=== PATIENT | female | born 1985 | race Caucasian/White ===

== ENCOUNTER 2020-05-05 08:13 | Outpatient (CLI) | payer OTHER, SELFPAY ==
--- NOTE | 2020-05-05 08:16 | EST_ITS ---
Patient Info Name: Whit Harper Age: 35 years : 1985 Gender: Female Ht: 64 in Wt: 115 lbs BSA: 1.53 m2 HR: 76 bpm BP: 110 / 69 mmHg Exam Date: 05/05/2020 8:32 AM Exam Location: [facility] Patient Status: Outpatient Admit Date: 05/05/2020 Staff Ordering Physician: Ventura Saldivar DO Bath Solution Maker: Joana Thornton RDCS Attending Provider: WILLIE SAUNDERS DO Referring Physician: Janna FU; Exercise Technologist: Rufina Arredondo RDCS Exercise Physician: Willie Saunders DO Exam Type: CA stress echo Study Info Indications R07.9 - Chest pain, unspecified Treadmill exercise stress echocardiogram is performed. Summary 1. 1. Negative Cheikh exercise stress test for ischemic ST changes by ECG criteria. 2. 2. Good functional capacity, achieving 13 METs of workload. 3. 3. Appropriate HR response to exercise. 4. 4. Appropriate HR recovery at 1 minute post exercise. 5. 5. Negative stress echocardiogram for ischemia by wall motion analysis. 6. 6. Patient informed of the above results. Stress Echo Findings Left Ventricle Appropriate increase in LV endocardial thickening with systole. Appropriate augmentation of contractility with systole. No wall motion abnormality. Left Ventricle Preserved LV systolic function, no wall motion abnormality. Protocol: Cheikh Stress ECG Details Stage: REST Duration (min): 7 min : 7 sec Speed (mph): 0.0 Grade (%): 0 HR (bpm): 76 SBP (mmHg): 110 DBP (mmHg): 69 METS: --- Stage: REST Duration (min): 17 min : 56 sec Speed (mph): 0.0 Grade (%): 0 HR (bpm): 91 SBP (mmHg): 110 DBP (mmHg): 69 METS: --- Stage: STAGE 1 Duration (min): 1 min : 0 sec Speed (mph): 1.7 Grade (%): 10 HR (bpm): 109 SBP (mmHg): 110 DBP (mmHg): 69 METS: --- Stage: STAGE 1 Duration (min): 2 min : 0 sec Speed (mph): 1.7 Grade (%): 10 HR (bpm): 112 SBP (mmHg): 110 DBP (mmHg): 69 METS: --- Stage: STAGE 1 Duration (min): 3 min : 0 sec Speed (mph): 1.7 Grade (%): 10 HR (bpm): 113 SBP (mmHg): 140 DBP (mmHg): 61 METS: --- Stage: STAGE 2 Duration (min): 1 min : 0 sec Speed (mph): 2.5 Grade (%): 12 HR (bpm): 123 SBP (mmHg): 140 DBP (mmHg): 61 METS: --- Stage: STAGE 2 Duration (min): 2 min : 0 sec Speed (mph): 2.5 Grade (%): 12 HR (bpm): 122 SBP (mmHg): 135 DBP (mmHg): 62 METS: --- Stage: STAGE 2 Duration (min): 3 min : 0 sec Speed (mph): 2.5 Grade (%): 12 HR (bpm): 122 SBP (mmHg): 135 DBP (mmHg): 62 METS: --- Stage: STAGE 3 Duration (min): 1 min : 0 sec Speed (mph): 3.4 Grade (%): 14 HR (bpm): 130 SBP (mmHg): 118 DBP (mmHg): 63 METS: --- Stage: STAGE 3 Duration (min): 2 min : 0 sec Speed (mph): 3.4 Grade (%): 14 HR (bpm): 130 SBP (mmHg): 118 DBP (mmHg): 63 METS: --- Stage: STAGE 3 Duration (min): 3 min : 0 sec
== END 2020-05-05 08:14 | disposition home or self-care (01) ==
LOC: ANHCARD 08:15
PROVIDERS: PCP Internal Medicine; Visit Provider Internal Medicine
DX: R07.89 Other chest pain (principal)
CPT/HCPCS: 93351

== ENCOUNTER 2020-05-25 10:36 | Outpatient (CLI) | payer OTHER, SELFPAY ==
--- NOTE | 2020-06-02 12:11 | WPDHOLTEREM ---
Holter/Event Monitor Holter/Event Monitor Date of procedure: 05/25/20 Procedure Type: 48 hour holter monitor Indications: Palpitations Conclusion: 1. 48 hour holter monitor on 05/25/20. 2. Underlying rhythm is sinus rhythm. HR range 57-169 bpm; average HR 100 bpm. 3. No premature supraventricular complex. No supraventricular tachycardia. 4. There is one premature ventricular complex. No ventricular tachycardia. 5. No sinoatrial or atrioventricular blocks. No significant pauses greater than 2 seconds. 6. No symptoms available for correlation.
== END 2020-05-25 10:37 | disposition home or self-care (01) ==
LOC: ANHCARD 10:39
PROVIDERS: PCP Internal Medicine; Visit Provider Nurse Practitioner
DX: R00.2 Palpitations (principal)
CPT/HCPCS: 93225; 93226

== ENCOUNTER 2020-08-03 16:01 | Outpatient (NON) | payer OTHER, SELFPAY ==
[2020-08-04 14:27] LABS: Influenza Control Positive
== END 2020-08-03 16:02 ==
LOC: ANHCOVIDDT 16:02
PROVIDERS: PCP Internal Medicine; Visit Provider Internal Medicine
DX: R68.89 Other general symptoms and signs (principal)
CPT/HCPCS: 87804

== ENCOUNTER 2020-08-04 07:13 | Outpatient (NON) | payer OTHER, SELFPAY ==
[2020-08-05 01:32] LABS: SARS-CoV-2 RNA PCR Negative
== END 2020-08-04 07:14 ==
LOC: ANHCOVIDDT 07:13
PROVIDERS: PCP Internal Medicine; Visit Provider Internal Medicine
DX: R68.89 Other general symptoms and signs (principal); Z20.828 Contact with and (suspected) exposure to other viral communicable diseases
CPT/HCPCS: 87635; C9803; U0003

== ENCOUNTER 2021-03-02 20:38 | Emergency (ER) | payer SELFPAY ==
--- NOTE | ~2021-03-02 | XR_ITS ---
XR ankle RT min 3V DATE: 03/02/2021 20:59 INDICATION: Fall down 8 steps. Generalized right ankle and foot pain TECHNIQUE: 4 views COMPARISON: None FINDINGS: No fracture or dislocation of the ankle or disruption of the ankle mortise. No periosteal r eaction or bone destruction. IMPRESSION: Negative Reviewed, dictated and finalized at location A. IMPRESSION: Negative
--- NOTE | ~2021-03-02 | XR_ITS ---
XR lumbar spine 2-3V DATE: 03/02/2021 21:32 INDICATION: Fall down 8 stairs. Back pain radiating down right leg. TECHNIQUE: AP, lateral, coned lateral lumbosacral views COMPARISON: None FINDINGS: Status post cholecystectomy. Normal alignment of the lumbar spine. No fracture or spondylolisthesis. The lumbar pedicles are int act. Minimal degenerative spurring at L2-3 and L3-4. Lumbar and lumbosacral interspaces are well pr eserved. The sacroiliac joints are normal. IMPRESSION: Minimal degenerative change; no fracture Reviewed, dictated and finalized at location A.
--- NOTE | ~2021-03-02 | XR_ITS ---
XR foot RT min 3V DATE: 03/02/2021 20:59 INDICATION: Fall down 8 steps. Generalized foot pain TECHNIQUE: 4 views COMPARISON: None FINDINGS: Osteotomy externum, normal variant. No fracture, dislocation, periosteal reaction or bone destruction IMPRESSION: No significant abnormality is detected in Reviewed, dictated and finalized at location A.
[2021-03-02 20:42] VITALS: BP 108/85; PULSE 93; RESP 18; TEMP 36.8; O2SAT 97
--- NOTE | 2021-03-02 20:50 | PC.NURSE ---
Xray of foot completed at bedside. Pt presents to ED with complaints of right foot pain after falling down carpeted stairs at home. 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 Pain sharp, aching and rated 8/10 at this time. Moderate swelling noted to top of foot. Pt able to manipulate digits with some pain; ice pack provided for pain. Mom is present at bedside. Call button and personal items within reach. Pt advised to press call button for assistance.
--- NOTE | 2021-03-02 21:18 | ED.GENADULT ---
HPI - General Adult General Chief complaint: Extremity Injury, Lower Stated complaint: Fell downstairs, R ankle pain Time Seen by Provider: 03/02/21 20:42 Source: RN notes reviewed History of Present Illness HPI narrative: Patient presents to emergency department from home for a fall. Patient states she is walking on stairs when she tripped landing on her buttocks and back and sliding down the stairs she states that since that time she is had pain in the right ankle and foot as well as mild pain in the left lower back patient notes some mild abrasions of the left lower back she denies striking her head or loss of consciousness she denies any other pain or injury states she took no medication for the pain Related Data Allergies Allergy/AdvReac Type Severity Reaction Status Date / Time No Known Allergies Allergy Verified 10/19/20 14:08 Review of Systems Review of Systems: Narrative: Gen.: Denies fevers or chills Eyes: Denies eye pain or visual change ENT: Denies congestion Respiratory: Denies shortness of breath or cough CV: Denies chest pain or palpitations GI: Denies abdominal pain nausea, emesis or diarrhea denies burning, urgency, frequency or hematuria Musculoskeletal: See HPI Neuro: Denies numbness, tingling, weakness or focal weakness Skin: Denies rash Except as documented, all other systems reviewed and negative [facility] Past Medical History Medical History (Updated 03/02/21 @ 22:18 by Yony Arias DO) Anxiety Fatigue Family History Family History Mother Hypertension Family history of elevated blood lipids Family history of malignant neoplasm of breast in first degree relative Family history of hypothyroidism Family history of malignant neoplasm of cervix Grandparent Cerebrovascular accident, Onset Age: 54 Father Depression Other Carcinoma of colon Family history of cardiovascular disease Family history of emphysema Family history of malignant neoplasm Social History Social History Smoking status: Current every day smoker Second hand tobacco smoke exposure: No Alcohol intake: current Exam Narrative: Exam Narrative: APPEARANCE: No acute distress, nontoxic, resting in bed EYES: EOMI HEENT: Normocephalic, atraumatic, OMM RESPIRATORY: No respiratory distress Clear to auscultation bilaterally with no rhonchi wheezing or rales. CARDIOVASCULAR: Regular rate and rhythm without murmurs rubs or gallops. ABDOMINAL: Soft, nontender, nondistended, no rebound or guarding Back: No midline thoracic or lumbar tenderness palpation no step-off tender palpation right paravertebral muscles L2-4 with mild overlying abrasion MUSCULOSKELETAl: Moves all extremities. No clubbing, cyanosis or edema. Tender palpation of the right medial and lateral ankle ~right dorsal foot mild swelling with no ecchymosis seen no tenderness at the base of the fifth metatarsal no tenderness of the proximal fibula no tenderness of the right knee or hip dorsalis pedis pulse 2+ neurovascular intact no tenderness bilateral upper extremities left lower extremity NEURO: Awake and alert. Following commands, speech normal, no focal deficits SKIN:: Warm, dry. No rashes lesions or abrasions PSYCHIATRIC: Normal affect/mood, Course Course Emergency Course: Discussed with patient results of workup and diagnosis. Discussed need for follow-up with primary care, proper use of medication, and reasons to return to the emergency department. Patient understands and agrees to current treatment plan Vital Signs Vital signs: Vital Signs Temperature 98.2 F 03/02/21 20:42 Pulse Rate 93 03/02/21 20:42 Respiratory Rate 18 03/02/21 20:42 Blood Pressure 108/85 03/02/21 20:42 Pulse Oximetry 97 03/02/21 20:42 Temperature 98.2 F 03/02/21 20:42 Pulse Rate 85 03/02/21 21:19 Respiratory Rate 20 03/02/21 21:
[2021-03-02 21:19] VITALS: BP 98/59; PULSE 85; RESP 20; O2SAT 97
--- NOTE | 2021-03-02 21:19 | PC.NURSE ---
EDMD presented to bedside.
--- NOTE | 2021-03-02 21:23 | PC.NURSE ---
pt to radiology via cart.
--- NOTE | 2021-03-02 21:28 | PC.NURSE ---
Pt returned from radiology.
[2021-03-02] MEDS: HYDROcodone/acetaminophen (*CRX) 5-325 MG TABLET 1 TAB PO (21:30)
[2021-03-02 21:55] LABS: Add Urine Microscopic? NO; Appearance Urine Clear (Clear); Bilirubin Urine Negative (Negative); Blood Urine Negative (Negative); Color Urine Straw (Yellow); Glucose Urine UA Negative (Negative); Ketones Urine Negative (Negative); Leukocyte Esterase Ur Negative LEU/UL (Negative); Nitrate Urine Negative (Negative); Protein Urine Negative (Negative); Specific Grav Ur 1.013 (1.001-1.035); Urobilinogen Urine Negative mg/dL (<2.0)
--- NOTE | 2021-03-02 21:55 | PC.NURSE ---
Pt assisted to and from restroom via wheel chair with mom. Pt is now back in room resting on cart in its lowest position with call button and personal items within reach. Pt advised to press call button for assistance.
[2021-03-02 22:21] VITALS: BP 103/69; PULSE 76; RESP 18; TEMP 37.6; O2SAT 99
[2021-03-02 22:35] VITALS: TEMP 37.6
--- NOTE | 2021-03-02 22:35 | PC.NURSE ---
Hilario wrap applied and crutch teaching completed. Pt tolerated well and was able to properly ambulate with crutches.
[2021-03-02 22:54] VITALS: TEMP 37.6
== END 2021-03-02 22:56 | disposition home or self-care (01) ==
PROVIDERS: Emergency Provider Emergency Medicine; PCP Internal Medicine
DX: S93.401A Sprain of unspecified ligament of right ankle, initial encounter (principal); S30.0XXA Contusion of lower back and pelvis, initial encounter; F17.200 Nicotine dependence, unspecified, uncomplicated; W10.9XXA Fall (on) (from) unspecified stairs and steps, initial encounter
CPT/HCPCS: 72100; 73610; 73630; 81003; 81025; 99284; A9270

== ENCOUNTER 2021-05-12 10:23 | Emergency (ER) | payer BC, SELFPAY ==
[2021-05-12 10:32] VITALS: BP 85/55; PULSE 67; RESP 16; TEMP 36.2; O2SAT 99
--- NOTE | 2021-05-12 11:02 | ED.URI ---
HPI - URI/Sore Throat General Chief Complaint: Upper Respiratory Infection Stated Complaint: sinus issues Time Seen by Provider: 05/12/21 11:02 Source: patient Mode of arrival: ambulatory Limitations: no limitations History of Present Illness HPI Narrative: Whit Harper is a 36 yo female with no PMH who comes with ongoing sinus issues, cough with green mucus, ear pain bilaterally no fever x2 weeks. She has been tested twice for Covid and both times are negative. However her job will make her leave because of her cough and mild hoarseness Patient has tried Mucinex, Tessalon Perles, [id number] Tuss-DM, [id number] cold pills without improvement Related Data Home Medications Medication Instructions Recorded Confirmed buspirone mg 05/12/21 Allergies Allergy/AdvReac Type Severity Reaction Status Date / Time No Known Allergies Allergy Verified 10/19/20 14:08 Review of Systems Review of Systems: CONSTITUTIONAL: Denies fever, chills, sweats. EYES: Denies visual changes, redness, discharge. ENT: Has rhinorrhea, has congestion, sore throat, bilateral otalgia. CARDIOVASCULAR: Denies chest pain, palpitations, edema. RESPIRATORY: Denies dyspnea, wheezing, productive cough GASTROINTESTINAL: Denies abdominal pain, nausea, vomiting, diarrhea. GENITOURINARY: Denies dysuria, hematuria, abnormal discharge SKIN: Denies rash or itching. NEUROLOGIC: Denies numbness, or focal weakness. PSYCHIATRIC: Denies anxiety or depression. [facility] Past Medical History Medical History Anxiety Fatigue Family History Family History Mother Hypertension Family history of elevated blood lipids Family history of malignant neoplasm of breast in first degree relative Family history of hypothyroidism Family history of malignant neoplasm of cervix Grandparent Cerebrovascular accident, Onset Age: 54 Father Depression Other Carcinoma of colon Family history of cardiovascular disease Family history of emphysema Family history of malignant neoplasm Social History Social History Smoking status: Current every day smoker Second hand tobacco smoke exposure: No Alcohol intake: current Comments At time of signature, I agree with nursing past medical, surgical, social and family history. There is no relevant family history pertinent to the presenting complaint. Exam Narrative: GENERAL: This is a well-nourished, well-developed patient, in mild distress. Feels fatigued HEAD: normocephalic, atraumatic. EYES: Sclera clear/white. Vision is grossly intact. EARS: External ears normal, auditory canals mild erythema and without drainage, TMs bulging; hearing grossly intact. NOSE: External nose normal with nasal discharge, nares with redness, has rhinorrhea. THROAT: Mucous membranes moist, posterior pharynx pink NECK: Neck supple, non-tender CARDIOVASCULAR: Regular rate and rhythm without murmurs, gallops, or rubs. RESPIRATORY: Clear to auscultation. Breath sounds equal bilaterally. No wheezes, rales, or rhonchi. GASTROINTESTINAL: Abdomen soft, SKIN: warm, intact with no suspicious lesions or rash, good texture and turgor. NEURO: awake, alert, and oriented to person, place and time. There were no obvious focal neurologic abnormalities. Steady gait EXTREMITIES: Normal range of motion. BACK: Nontender without deformity Course Course Emergency Course: Patient comes with sinus issues including bilateral ear pain and rhinorrhea sinus pressure cough with green mucus x2 weeks has had to quit negative Covid test Started on Zithromax, codeine cough syrup, steroids, Zyrtec, patient will continue use Mucinex and will start Flonase nasal spray and continue Zyrtec once steroids are completed Vital Signs Vital signs: Vital Signs Temperature 97.1 F L
== END 2021-05-12 11:24 | disposition home or self-care (01) ==
PROVIDERS: Emergency Provider Nurse Practitioner; PCP Family Medicine
DX: J01.10 Acute frontal sinusitis, unspecified (principal); F17.200 Nicotine dependence, unspecified, uncomplicated
CPT/HCPCS: 99213; G0463

== ENCOUNTER 2021-06-05 09:36 | Emergency (ER) | payer BC, SELFPAY ==
[2021-06-05 09:44] VITALS: BP 113/70; PULSE 90; RESP 20; TEMP 36.4; O2SAT 100
--- NOTE | 2021-06-05 10:05 | ED.URI ---
HPI - URI/Sore Throat General Chief Complaint: Nausea/Vomiting/Diarrhea Stated Complaint: vomiting/diarrhea/cough Time Seen by Provider: 06/05/21 10:48 Source: patient and RN notes reviewed Mode of arrival: ambulatory Limitations: no limitations History of Present Illness HPI Narrative: 36-year-old female presents with concern for ongoing sinus congestion, pressure, pain, drainage. Reports she was seen on May 12 for similar symptoms and was given antibiotic and steroid. Reports symptoms mildly improved, however did not resolve. She reports since then she over the last 2 days has developed shakiness, body aches, headache, nausea, vomiting, occasional diarrhea. She reports a history of bleeding gastric ulcers, reports all of her vomitus looked slightly black. She denies abdominal pain. Denies bloody, black, tarry stools. MD elicited complaint: other ([place]) Related Data Allergies Allergy/AdvReac Type Severity Reaction Status Date / Time No Known Allergies Allergy Verified 06/05/21 10:08 Review of Systems Review of Systems: CONSTITUTIONAL: Reports malaise, chills, sweats, shakiness. Denies fever. EYES: Denies visual changes, redness, or discharge. ENT: Reports rhinorrhea, congestion, sinus pain, otalgia. Denies sore throat. CARDIOVASCULAR: Denies chest pain, palpitations, or edema. RESPIRATORY: Denies cough or dyspnea. GASTROINTESTINAL: Denies abdominal pain, bloody, or mucous stools. Reports nausea, vomiting, diarrhea, GENITOURINARY: Denies dysuria or hematuria. SKIN: Denies rash or itching. MUSCULOSKELETAL: Reports myalgia. NEUROLOGIC: Reports headache. All systems reviewed & are unremarkable except as noted in HPI and below PMFSH Past Medical History Medical History Anxiety Fatigue Family History Family History Mother Hypertension Family history of elevated blood lipids Family history of malignant neoplasm of breast in first degree relative Family history of hypothyroidism Family history of malignant neoplasm of cervix Grandparent Cerebrovascular accident, Onset Age: 54 Father Depression Other Carcinoma of colon Family history of cardiovascular disease Family history of emphysema Family history of malignant neoplasm Social History Social History Smoking status: Current every day smoker Second hand tobacco smoke exposure: No Alcohol intake: current Comments At time of signature, agree with nursing past medical, surgical, social and family history. There is no relevant family history pertinent to the presenting complaint Exam Narrative: GENERAL: Well-appearing, well-nourished, and in no acute distress. HEAD: Normocephalic, atraumatic. EYES: PERRLA, conjunctivae clear ENT: Nares clear, turbinates edematous and erythematous, sinus tenderness. Mucous membranes moist. TM pearly bah with dull light reflex bilaterally; no tragal tenderness. Oropharynx not erythematous without lesions. Tonsils not enlarged and without exudate, no drooling, no hoarseness, no trismus, uvula midline. NECK: Supple. No lymphadenopathy. CHEST: No respiratory distress. Clear to auscultation. No bony deformities, no asymmetry. Speaks in full sentences. HEART: Regular rate and rhythm. No murmur heard ABDOMEN: Soft,nondistended, normal active bowel sounds, no palpable masses. Actually mild epigastric tenderness SKIN: Warm, dry, no visible rash. NEURO: Alert and oriented x3. PSYCH: Normal mood and affect Course Course Emergency Course: Discussed limited diagnostic capability at the [facility] regarding patient's symptoms, particularly black color in her vomitus. Discussed transfer to emergency department versus following up with primary care doctor. Patient reports she has a history of bleeding gastric ulcers, reports she has a gastroenterolo
[2021-06-06 20:25] LABS: SARS-CoV-2 RNA PCR Negative
== END 2021-06-05 11:20 | disposition home or self-care (01) ==
PROVIDERS: Emergency Provider Nurse Practitioner
DX: J01.90 Acute sinusitis, unspecified (principal); R11.2 Nausea with vomiting, unspecified; F17.200 Nicotine dependence, unspecified, uncomplicated
CPT/HCPCS: 87081; 87426; 87880; 99213; C9803; G0463; U0003; U0005

== ENCOUNTER → 2021-10-15 00:51 | Outpatient (CLI) | payer BC, SELFPAY ==
[2021-10-15 14:45] LABS: Influenza A QL RT-PCR Negative (Negative); Influenza B QL RT-PCR Negative (Negative); SARS-CoV-2 RNA PCR Negative
== END ==
PROVIDERS: PCP Internal Medicine; Visit Provider Internal Medicine
DX: R68.89 Other general symptoms and signs (principal); Z20.822 Contact with and (suspected) exposure to COVID-19
CPT/HCPCS: 87502; C9803; U0003; U0005

== ENCOUNTER 2021-12-04 17:53 | Emergency (ER) | payer BC, SELFPAY ==
--- NOTE | ~2021-12-04 | XR_ITS ---
EXAMINATION: XR chest 2V DATE: 12/04/2021 18:57 INDICATION: 2 weeks of productive cough TECHNIQUE: PA and lateral views of the chest were obtained. COMPARISON: Chest radiograph dated 06/15/2019 FINDINGS: The lungs remain clear with no focal airspace opacities, pulmonary edema, pleural effusion or pneumot horax. The cardiomediastinal silhouette is normal. Mild thoracolumbar dextrocurvature with mild spond ylosis. Cholecystectomy clips in right upper quadrant. IMPRESSION: 1. No acute cardiopulmonary disease. Reviewed, dictated and finalized at location A. [employer]
[2021-12-04 18:03] VITALS: BP 138/84; PULSE 108; RESP 16; TEMP 37.2; O2SAT 99
--- NOTE | 2021-12-04 18:30 | ED.URI ---
HPI - URI/Sore Throat General Chief Complaint: Upper Respiratory Infection Stated Complaint: vomiting/uri/cp Time Seen by Provider: 12/04/21 18:31 Source: patient Mode of arrival: ambulatory Limitations: no limitations History of Present Illness HPI Narrative: 36 yo F presents with c/o sore throat and N/V today. Also reports has had dry, hacking cough for 2 wks. cough is constant. Denies SOB. Not taking OTC cough suppressant to treat symptoms. afebrile. All systems reviewed and negative except as noted above. Related Data Home Medications Medication Instructions Recorded Confirmed cetirizine 10 mg tablet 10 mg PO DAILY 06/11/21 09/04/21 dexlansoprazole 60 mg 60 mg PO DAILY 06/11/21 09/04/21 capsule,biphase delayed release diphenoxylate-atropine 2.5 1 tablet PO QID PRN 06/11/21 09/04/21 mg-0.025 mg tablet multivitamin 1 tablet PO DAILY 06/11/21 09/04/21 prazosin 1 mg capsule 1 mg PO QHS 06/11/21 09/04/21 sucralfate 1 gram tablet 1 g PO BID tablet 06/11/21 09/04/21 quetiapine 50 mg tablet 50 mg PO TID tablet 09/04/21 09/04/21 fluoxetine [Prozac] 20 mg PO BID 12/04/21 12/04/21 Allergies Allergy/AdvReac Type Severity Reaction Status Date / Time No Known Allergies Allergy Verified 09/04/21 08:48 Review of Systems Review of Systems: CONSTITUTIONAL: Denies fever, chills, or sweats. EYES: Denies visual changes, redness, or discharge. ENT: Denies rhinorrhea, congestion. Reports sore throat. Denies otalgia. CARDIOVASCULAR: Denies chest pain, palpitations, or edema. RESPIRATORY: Reports cough. Denies dyspnea. GASTROINTESTINAL: Denies abdominal pain, nausea, vomiting, or diarrhea. GENITOURINARY: Denies dysuria or hematuria. SKIN: Denies rash or itching. MUSCULOSKELETAL: Denies back pain, joint pain, or myalgia. NEUROLOGIC: Denies headache, numbness, or weakness. PSYCHIATRIC: Denies anxiety or depression. All other systems reviewed are negative, except as documented in HPI. [facility] Past Medical History Medical History Anxiety Fatigue Family History Family History Mother Hypertension Family history of elevated blood lipids Family history of malignant neoplasm of breast in first degree relative Family history of hypothyroidism Family history of malignant neoplasm of cervix Grandparent Cerebrovascular accident, Onset Age: 54 Father Depression Other Carcinoma of colon Family history of cardiovascular disease Family history of emphysema Family history of malignant neoplasm Social History Social History Smoking packs per day: 5 Smoking cigarettes per day: 100.0 Years smoked: 28 Smoking pack-years: 140.00 Smoking status: Current every day smoker Second hand tobacco smoke exposure: No Alcohol intake: current Comments At time of signature, agree with nursing past medical, surgical, social and family history. There is no relevant family history pertinent to the presenting complaint. Exam Narrative: GENERAL: This is a well-nourished, well-developed patient, in no apparent distress. HEAD: normocephalic, atraumatic. EYES: PERRL. Sclera clear/white. Vision is grossly intact. EARS: External ears normal, auditory canals clear and without drainage, TMs normal without perforation. Hearing grossly intact. NOSE: External nose normal with no obvious nasal discharge, nares without redness, no rhinorrhea. THROAT: Mucous membranes moist, posterior pharynx erythematous with no swelling. NECK: Neck supple, non-tender without lymphadenopathy, masses or thyromegaly. CARDIOVASCULAR: Regular rate and rhythm without murmurs, gallops, or rubs. RESPIRATORY: Clear to auscultation. Breath sounds equal bilaterally. No wheezes, rales, or rhonchi. GASTROINTESTINAL: Abdomen soft, non-tender, nondistended. Bowel sounds are active. No hepato-sple
== END 2021-12-04 19:30 | disposition home or self-care (01) ==
PROVIDERS: Emergency Provider Nurse Practitioner Family; PCP Internal Medicine
DX: R11.2 Nausea with vomiting, unspecified (principal); J20.9 Acute bronchitis, unspecified; F17.210 Nicotine dependence, cigarettes, uncomplicated; F41.9 Anxiety disorder, unspecified
CPT/HCPCS: 71046; 87081; 87880; 99213; G0463

== ENCOUNTER 2021-12-31 08:09 | Emergency (ER) | payer BC, SELFPAY ==
[2021-12-31] VITALS (35 sets, daily range): BP systolic 107–132; BP diastolic 72–97; PULSE 85–107; RESP 15–18; O2SAT 91–100
[2021-12-31 08:38] LABS: Basophils Absolute Auto 0.1 K/mm3 (0.0-0.1); Basophils Percent Auto 0.8 % (0.2-1.2); Eosinophils Absolute Auto 0.6 K/mm3 (0-0.3); Eosinophils Percent Auto 5.5 % (0-4.4); Hematocrit 40.5 % (37.0-47.0); Hemoglobin 13.6 g/dL (12.0-15.0); Immature Granulocyte Absolute 0.03 K/mm3 (0.00-0.031); Immature Granulocyte Percent A 0.3 % (0-0.5); Lymphocytes Absolute Auto 3.31 K/mm3 (0.9-3.2); Lymphocytes Percent Auto 31.9 % (18.3-44.2); Mean Corpuscular HGB Conc 33.6 g/dl (32-36); Mean Corpuscular Hemoglobin 33.5 pg (26-34); Mean Corpuscular Volume 99.8 fl (80-100); Mean Platelet Volume 8.5 fl (7.4-10.4); Monocytes Absolute Auto 0.5 K/mm3 (0.1-0.6); Monocytes Percent Auto 4.7 % (2.6-8.5); Neutrophils Absolute Auto 5.9 K/mm3 (1.3-6.7); Neutrophils Percent Auto 56.8 % (45.5-73.1); Platelet Count Result 271 k/mm3 (150-375); Red Blood Count 4.06 M/mm3 (4.2-5.4); Red Cell Distribution Width 14.9 % (11.5-14.5); White Blood Count 10.4 K/mm3 (4.5-10.0)
[2021-12-31 08:49] LABS: Alanine Aminotransferase 63 U/L (4-35); Albumin Level 4.4 g/dL (3.5-5.1); Alkaline Phosphatase 70 U/L (38-126); Anion Gap 8 mmol/L (8-16); Aspartate Amino Transferase 90 U/L (14-36); Bilirubin,Total 0.2 mg/dL (0.2-1.3); Blood Urea Nitrogen 10 mg/dL (7-17); Calcium 8.3 mg/dL (8.4-10.2); Carbon Dioxide 26 mmol/L (22-30); Chloride 104 mmol/L (98-107); Estimated CRCL calculation 93 ml/min; Estimated Glomerular Filt Rate > 60; Glucose 101 mg/dL (65-110); Potassium 3.9 mmol/L (3.4-5.0); Sodium 138 mmol/L (137-145)
--- NOTE | 2021-12-31 08:56 | ED.PSYCH ---
HPI - Psych General Chief Complaint: Alcohol <Chris Chapa DO - Last Filed: 12/31/21 18:12> Stated Complaint: depression <Chris Chapa DO - Last Filed: 12/31/21 18:12> Time Seen by Provider: 12/31/21 08:25 <Chris Chapa DO - Last Filed: 12/31/21 18:12> Source: patient <Chris Chapa DO - Last Filed: 12/31/21 18:12> Mode of arrival: ambulatory <Chris Chapa DO - Last Filed: 12/31/21 18:12> Limitations: no limitations <Chris Chapa DO - Last Filed: 12/31/21 18:12> History of Present Illness HPI Narrative: 36-year-old female presents from the internal medicine clinic in [place] after seen by nurse practitioner Darlene. She sent her over here to be evaluated and make arrangements for her to have an inpatient stay at [facility]. Patient's been having problem depression and alcohol abuse. Is gotten much worse lately. She is drinking on a daily basis. She has been to 3 different hospitals in the last week. At this time she needs an inpatient stay in a psychiatric facility to help her get her symptoms under control. She had a longstanding history of depression. She states she has not been taking her depressive medication as she is supposed to. She denies any suicidal plan at this time. She is working and works in logistics. <Chris Chapa DO - Last Filed: 12/31/21 18:12> Related Data Home Medications: Home Medications Medication Instructions Recorded Confirmed cetirizine 10 mg tablet 10 mg PO DAILY 06/11/21 12/31/21 dexlansoprazole 60 mg 60 mg PO DAILY 06/11/21 12/31/21 capsule,biphase delayed release diphenoxylate-atropine 2.5 1 tablet PO QID PRN 06/11/21 12/31/21 mg-0.025 mg tablet multivitamin 1 tablet PO DAILY 06/11/21 12/31/21 sucralfate 1 gram tablet 1 g PO BID tablet 06/11/21 12/31/21 fluoxetine [Prozac] 20 mg PO BID 12/04/21 12/31/21 <Chris Chapa DO - Last Filed: 12/31/21 18:12> Allergies/Adverse Reactions: Allergies Allergy/AdvReac Type Severity Reaction Status Date / Time No Known Allergies Allergy Verified 12/31/21 07:24 <Chris Chapa, DO - Last Filed: 12/31/21 18:12> Review of Systems Review of Systems: CONSTITUTIONAL: Denies fever, chills, or sweats. EYES: Denies visual changes, redness, or discharge. ENT: Denies rhinorrhea, congestion, sore throat, or otalgia. CARDIOVASCULAR: Denies chest pain, palpitations, or edema. RESPIRATORY: Denies cough or dyspnea. GASTROINTESTINAL: Denies abdominal pain, nausea, vomiting, or diarrhea. GENITOURINARY: Denies dysuria or hematuria. SKIN: Denies rash or itching. MUSCULOSKELETAL: Denies back pain, joint pain, or myalgia. NEUROLOGIC: Denies headache, numbness, or weakness. PSYCHIATRIC: Admits to depression as well as alcohol abuse. <Chris Chapa, DO - Last Filed: 12/31/21 18:12> [facility] Past Medical History Medical History: Medical History Anxiety Fatigue <Chris Chapa, DO - Last Filed: 12/31/21 18:12> Family History Family History: Family History Mother Hypertension Family history of elevated blood lipids Family history of malignant neoplasm of breast in first degree relative Family history of hypothyroidism Family history of malignant neoplasm of cervix Grandparent Cerebrovascular accident, Onset Age: 54 Father Depression Other Carcinoma of colon Family history of cardiovascular disease Family history of emphysema Family history of malignant neoplasm <Chris Chapa DO - Last Filed: 12/31/21 18:12> Social History Social History: Social History Smoking packs per day: 5 Smoking cigarettes per day: 100.0 Years smoked: 28 Smoking pack-years: 140.00 Smoking status: Current every day smoker Second hand tobacco smoke exposure: No
[2021-12-31] MEDS: LORazepam INJ (*CRX) 2 MG/ML VIAL 0.5 MG IV PUSH (09:03)
[2021-12-31 09:10] LABS: Ethanol 432 mg/dL (<10)
[2021-12-31 09:22] LABS: Add Urine Microscopic? YES; Appearance Urine Cloudy (Clear); Bilirubin Urine Negative (Negative); Blood Urine Negative (Negative); Color Urine Yellow (Yellow); Glucose Urine UA Negative (Negative); Ketones Urine Negative (Negative); Leukocyte Esterase Ur Negative LEU/UL (Negative); Mucus Urine Rare /lpf; Nitrate Urine Negative (Negative); Protein Urine Negative (Negative); RBC Urine 0-2 /hpf (0-2); Specific Grav Ur 1.015 (1.001-1.035); Squamous Epithelial Cell Urine Many /hpf (Few); Urobilinogen Urine Negative mg/dL (<2.0); WBC Urine 0-3 /hpf
[2021-12-31 09:56] LABS: Amphetamine Screen Urine Negative (Negative); Barbiturate Screen Urine Negative (Negative); Benzodiazepines Screen Urine Positive (Negative); Cannabinoid Screen Urine Positive (Negative); Cocaine Screen Urine Negative (Negative); Methadone Screen Urine Negative (Negative); Opiate Screen Urine Negative (Negative); Phencyclidine Screen Urine Negative (Negative)
[2021-12-31] MEDS: SODIUM CHLORIDE 0.9% IV 1,000 ML 999 ML IV CONT (15:04)
[2021-12-31] MEDS: LORazepam INJ (*CRX) 2 MG/ML VIAL 1 MG IV PUSH (17:02)
[2021-12-31 18:57] LABS: Ethanol 110 mg/dL (<10)
[2021-12-31] MEDS: LORazepam (*CRX) 0.5 MG TABLET PO (20:28)
--- NOTE | 2021-12-31 20:33 | PC.NURSE ---
spoke with akash from [facility] at this time. per akash someone from crisis is already en route and should be able to evaluate the pt upon their arrival.
[2021-12-31 22:40] LABS: SARS-CoV-2 RNA PCR Negative
[2021-12-31 22:56] LABS: Ethanol < 10 mg/dL (<10)
--- NOTE | 2021-12-31 23:01 | PC.NURSE ---
per facilities maintenance worker, feliberto will review in the morning, [facility] may have bed availability open up after 2300 12/31/2021, also waiting to hear back from [facility] at this time
--- NOTE | 2021-12-31 23:12 | PC.NURSE ---
[facility] will not be [facility] the patient because she does not meet criteria.
[2022-01-01] MEDS: LORazepam (*CRX) 1 MG TABLET PO ×2 (00:26→13:34)
--- NOTE | 2022-01-01 02:14 | PC.NURSE ---
spoke with lety from [facility] at this time. they will not accept pt because she does not meet criteria.
[2022-01-01 06:15] VITALS: BP 129/92; PULSE 84; RESP 18; O2SAT 99
[2022-01-01] MEDS: ACETAMINOPHEN 500 MG TABLET 1000 MG PO (06:25)
[2022-01-01] MEDS: IBUPROFEN 400 MG TABLET 800 MG PO (06:26)
[2022-01-01] MEDS: QUEtiapine FUMARATE 25 MG TABLET 50 MG PO ×2 (07:13→14:14)
[2022-01-01] MEDS: GABAPENTIN 300 MG CAPSULE PO ×2 (07:13→14:14)
[2022-01-01] MEDS: FLUoxetine HCL 20 MG CAPSULE PO ×2 (07:13→14:14)
--- NOTE | 2022-01-01 08:46 | PC.NURSE ---
covid test and medical clearance faxed to [facility] per their request
--- NOTE | 2022-01-01 09:32 | PC.NURSE ---
consents for treatment faxed to [facility]. waiting bed assignment.
[2022-01-01] MEDS: SUCRALFATE SUSP 100 MG/ML 10 ML UDC 1000 MG PO (14:15)
== END 2022-01-01 15:47 ==
PROVIDERS: Emergency Medicine; Emergency Provider Emergency Medicine; PCP Internal Medicine
DX: F32.9 Major depressive disorder, single episode, unspecified (principal); F10.129 Alcohol abuse with intoxication, unspecified; Y90.8 Blood alcohol level of 240 mg/100 ml or more; F17.210 Nicotine dependence, cigarettes, uncomplicated; Z20.822 Contact with and (suspected) exposure to COVID-19
CPT/HCPCS: 36415; 80053; 80307; 81001; 81025; 84443; 85025; 96361; 96374; 96376; 99285; A9270; C9803; J2060; J7030; U0003; U0005

== ENCOUNTER 2023-04-16 10:23 | Observation (INO) | payer BC, SELFPAY ==
[2023-04-16] VITALS (9 sets, daily range): BP systolic 96–124; BP diastolic 50–74; PULSE 62–109; RESP 16–20; TEMP 36.2–36.7; O2SAT 97–100; BMI 25.9
--- NOTE | ~2023-04-16 | US_ITS ---
EXAMINATION: US soft tissue LE RT DATE: 04/16/2023 13:30 INDICATION: Dog bite at the right posterior thigh. TECHNIQUE: Multiple grayscale and Doppler ultrasound images of the right thigh were obtained. COMPARISON: None FINDINGS: There is no mass or fluid collection in the patient's area of concern in right posterior th igh. IMPRESSION: 1. No abnormal mass or fluid collection in the patient's area of concern in right posterior thigh. Reviewed, dictated and finalized at location A. IMPRESSION: 1. No abnormal mass or fluid collection in the patient's area of concern in rig ht posterior thigh.
[2023-04-16 13:45] LABS: Basophils Absolute Auto 0.1 K/mm3 (0.0-0.1); Basophils Percent Auto 0.9 % (0.2-1.2); Eosinophils Absolute Auto 0.5 K/mm3 (0-0.3); Eosinophils Percent Auto 7.5 % (0-4.4); Hematocrit 46.2 % (37.0-47.0); Hemoglobin 15.3 g/dL (12.0-15.0); Immature Granulocyte Absolute 0.02 K/mm3 (0.00-0.031); Immature Granulocyte Percent A 0.3 % (0-0.5); Lymphocytes Absolute Auto 1.26 K/mm3 (0.9-3.2); Lymphocytes Percent Auto 19.7 % (18.3-44.2); Mean Corpuscular HGB Conc 33.1 g/dl (32-36); Mean Corpuscular Hemoglobin 33.6 pg (26-34); Mean Corpuscular Volume 101.5 fl (80-100); Mean Platelet Volume 9.2 fl (7.4-10.4); Monocytes Absolute Auto 0.5 K/mm3 (0.1-0.6); Monocytes Percent Auto 8.1 % (2.6-8.5); Neutrophils Absolute Auto 4.1 K/mm3 (1.3-6.7); Neutrophils Percent Auto 63.5 % (45.5-73.1); Platelet Count Result 285 k/mm3 (150-375); Red Blood Count 4.55 M/mm3 (4.2-5.4); White Blood Count 6.4 K/mm3 (4.5-10.0)
[2023-04-16 13:58] LABS: Alanine Aminotransferase 68 U/L (6-35); Albumin Level 4.9 g/dL (3.5-5.1); Alkaline Phosphatase 71 U/L (38-126); Anion Gap 7 mmol/L (8-16); Aspartate Amino Transferase 76 U/L (14-36); Bilirubin,Total 0.6 mg/dL (0.2-1.3); Blood Urea Nitrogen 11 mg/dL (7-17); CRP < 0.5 mg/dL (<1.0); Calcium 9.5 mg/dL (8.4-10.2); Carbon Dioxide 30 mmol/L (22-30); Chloride 104 mmol/L (98-107); Estimated CRCL calculation 93 ml/min; Estimated Glomerular Filt Rate > 60; Glucose 84 mg/dL (65-110); Potassium 4.4 mmol/L (3.4-5.0); Sodium 141 mmol/L (137-145)
--- NOTE | 2023-04-16 14:04 | ED.ANIMALBIT ---
HPI - Animal Bite General Chief Complaint: Animal Bite <DEBBIE Carey Last Filed: 04/16/23 16:47> Stated Complaint: bit by unknown dog <DEBBIE Carey Last Filed: 04/16/23 16:47> Time Seen by Provider: 04/16/23 11:19 <DEBBIE Carey Last Filed: 04/16/23 16:47> Source: patient <DEBBIE Carey Last Filed: 04/16/23 16:47> Mode of arrival: ambulatory <DEBBIE Carey Last Filed: 04/16/23 16:47> Limitations: no limitations <DEBBIE Carey Last Filed: 04/16/23 16:47> History of Present Illness HPI narrative: Patient is a 38-year-old female who presents to the ED with report of dog bite. Patient reports she was bit by a stray dog while walking outdoors last . She thinks she startled the dog. She was bit in her left calf and right posterior upper thigh. She washed the wound thoroughly upon returning home. She developed a fever on Friday, up to 101F. She began taking leftover Augmentin at home that day. She has had 4 days of taking Augmentin twice daily, but reports that symptoms continue to worsen. She reports having worsening pain, redness, warmth to her wound on her right posterior thigh. She states left calf is not bothering her quite as much. She denies any further documented fever. Denies nausea or vomiting. Tetanus status unknown, may be > 10 yrs old. <DEBBIE Carey Last Filed: 04/16/23 16:47> Related Data Home Medications: Home Medications Medication Instructions Recorded Confirmed No Home Medications 04/16/23 04/16/23 <DEBBIE Carey Last Filed: 04/16/23 16:47> Allergies/Adverse Reactions: Allergies Allergy/AdvReac Type Severity Reaction Status Date / Time No Known Allergies Allergy Verified 01/09/22 10:27 <DEBBIE Carey Last Filed: 04/16/23 16:47> Review of Systems Review of Systems: CONSTITUTIONAL: See HPI. CARDIOVASCULAR: Denies chest pain. RESPIRATORY: Denies dyspnea. GASTROINTESTINAL: Denies abdominal pain, nausea, vomiting. GENITOURINARY: Denies dysuria or hematuria. SKIN: See HPI. MUSCULOSKELETAL: See HPI. NEUROLOGIC: Denies tingling, numbness, or weakness. <Salome Cortez PA-C - Last Filed: 04/16/23 16:47> All systems reviewed & are unremarkable except as noted in HPI and below <Salome Cortez PA-C - Last Filed: 04/16/23 16:47> [facility] Past Medical History Medical History: Medical History Alcohol withdrawal Anxiety Fatigue <Salome Cortez PA-C - Last Filed: 04/16/23 16:47> Family History Family History: Family History Mother Hypertension Family history of elevated blood lipids Family history of malignant neoplasm of breast in first degree relative Family history of hypothyroidism Family history of malignant neoplasm of cervix Grandparent Cerebrovascular accident, Onset Age: 54 Father Depression Other Carcinoma of colon Family history of cardiovascular disease Family history of emphysema Family history of malignant neoplasm <Salome Cortez PA-C - Last Filed: 04/16/23 16:47> Social History Social History: Social History Smoking packs per day: 0.5 Smoking cigarettes per day: 10.0 Years smoked: 23 Smoking pack-years: 11.50 Smoking status: Current every day smoker Tobacco type: cigarettes Second hand tobacco smoke exposure: No Alcohol intake: current Drinks per week: 15 Substance use: former Substance use type: does not use Lack of Transportation: No Lack of Food: Never True Current Housing: I Have Housing Concerned About Future Housing: No Difficulty Paying Gas/Electric Bills: No Difficulty Paying for Meds: No Current
[2023-04-16] MEDS: TETANUS,DIPHTHERIA,AC PERTUSSIS ADULT (0.5 ML) BOOSTRIX IM (14:41)
[2023-04-16 14:43] LABS: Erythrocyte Sedimentation Rate 1 mm/hr (0-20)
[2023-04-16] MEDS: AMPICILLIN SULB 3 GM/NS 100 ML 3 GM/100 ML VIAL IVPB ×2 (14:44→23:22)
[2023-04-16] MEDS: MORPHINE SULFATE (*CRX) 4 MG/ML INJ IV PUSH (15:56)
[2023-04-16] MEDS: IBUPROFEN 600 MG TABLET PO ×2 (15:56→21:51)
[2023-04-16] MEDS: ONDANSETRON INJ 4 MG/2 ML VIAL IV PUSH (15:56)
[2023-04-16] MEDS: ACETAMINOPHEN 325 MG TABLET 650 MG PO ×2 (15:56→20:12)
--- NOTE | 2023-04-16 17:51 | ADMGEN ---
This patient, Whit Harper, was admitted to [facility] Surg Room 307-02. Patient/family oriented to hospital policies and general routines including ID bracelet, bed and alarms, visiting hours, pain management, procedures, bathroom and other care routines, personal items, smoking policy, room service/diet, and visiting hours. Information on how to activate the Rapid Response Team has been discussed. Patient/Family are encouraged to report perceived risks to care and to ask questions if they do not understand what they are told or what they should do.
--- NOTE | 2023-04-16 18:12 | PC.NURSE ---
Pt arrived to the unit. Pt belongings include, silver [employer] computer with black bottom, cell phone, ship captain, 2 books, pink purse, white yeti cup, bah and white cheetah print robe, inhaler, tooth brush and tooth paste nike sandals, 2 pair of pants, 2 pair of socks, 1 pair boxers, 1 shirt, 1 pair of shorts, and 1 hoodie.
--- NOTE | 2023-04-16 22:00 | PC.NURSE ---
called Md Dan pt requesting different pain medication regimen states tylenol and ibuprofen ineffective for B leg pain r/t dog bites and cellulitis
--- NOTE | 2023-04-16 22:02 | PM.IMHP ---
H&P: HPI History of Present Illness Date/Time: 04/16/23 22:02 Chief Complaint: Dog bite Narrative: This is a 38-year-old female patient who came in today to be evaluated at for cellulitis/dog bite. The patient stated this past she was walking down the street when a stray dog came up and bit her on her right thigh and left calf. The patient did not know who is dog it was and the patient did not have any tags on. The patient stated that she had some Augmentin at home. And she stated this was from antibiotics that were prescribed this past June. The patient was taking the Augmentin twice a day and she stated that the symptoms continue to worsen. The patient has no drainage from either 1 of the bite and has significant bruising. The health department was called to determine if the patient was eligible for rabies vaccine and it was determined that she was not eligible for rabies. The patient did receive a tetanus shot because she was unsure of her vaccination status. Her white count was normal. AST 76 ALT 68. Soft tissue ultrasound was read as no abnormal mass or fluid collection in the patient's area of concern the right posterior thigh. The patient was given a tetanus vaccine is morphine Zofran and was started on Unasyn. The patient was admitted to observation status on the date of service of 04/16/2023. Review of Systems Review of Systems: All systems reviewed & are unremarkable except as noted in HPI and below Constitutional: Constitutional: Reports as per HPI and Reports no additional constitutional complaints Eyes: Eyes: Reports as per HPI and Reports no additional eye complaints ENT: Reports system reviewed and no additional complaints, except as documented and Reports Normal hearing present Cardiovascular: Cardiovascular: Reports no additional cardiovascular complaints Respiratory: Respiratory: Reports no additional respiratory complaints and Reports no additional respiratory complaints Gastrointestinal: Gastrointestinal: Reports as per HPI and Reports no additional gastrointestinal complaints Musculoskeletal: Musculoskeletal: Reports no additional musculoskeletal complaints Integumentary/Breasts: Skin/Breast: Reports system reviewed and no additional complaints, except as docu and Reports as per HPI Neurologic: Reports system reviewed and no additional complaints, except as documented, Reports as per HPI and Reports Normal hearing present Psychiatric: Psychiatric: Reports no additional psychiatric complaints and Reports as per HPI Endocrine: Endocrine: Reports no additional endocrine complaints Hematologic/Lymphatic: Hematologic/Lymphatic: Reports no additional hematologic/lymphatic complaints Allergic/Immunologic: Allergic/Immunologic: Reports no additional allergic/immunologic complaints PMFSH Past Medical History Medical History (Updated 04/16/23 @ 14:55 by Salome Cortez PA-C) Alcohol withdrawal Anxiety Fatigue Surgical History Surgical History (Updated 04/17/23 @ 00:33 by Chari Medeiros NP) History of section, classical X2 History of fundoplication Hx of cholecystectomy Family History Family History Mother Hypertension Family history of elevated blood lipids Family history of malignant neoplasm of breast in first degree relative Family history of hypothyroidism Family history of malignant neoplasm of cervix Grandparent Cerebrovascular accident, Onset Age: 54 Father Depression Other Carcinoma of colon Family history of cardiovascular disease Family history of emphysema Family history of malignant neoplasm Social History Social History (Updated 04/17/23 @ 00:34 by Chari Medeiros NP) Social History: The patient stated that she is not currently working. She lives with her boyfriend. She has 2 children. She stated that she had history of alcoholism but went to rehab and has not b
--- NOTE | 2023-04-16 22:04 | PC.NURSE ---
Md Dan called back order renetta gaytanhr
[2023-04-16] MEDS: HYDROcodone/acetaminophen (*CRX) 5-325 MG TABLET 1 TAB PO (22:41)
[2023-04-17] MEDS: AMPICILLIN SULB 3 GM/NS 100 ML 3 GM/100 ML VIAL IVPB ×2 (05:18→12:09)
[2023-04-17] MEDS: HYDROcodone/acetaminophen (*CRX) 5-325 MG TABLET 1 TAB PO ×2 (05:18→12:11)
[2023-04-17 06:00] VITALS: BP 93/56; PULSE 69; RESP 16; TEMP 36.1; O2SAT 98
[2023-04-17 06:20] LABS: Basophils Absolute Auto 0.1 K/mm3 (0.0-0.1); Basophils Percent Auto 0.9 % (0.2-1.2); Eosinophils Absolute Auto 0.2 K/mm3 (0-0.3); Eosinophils Percent Auto 4.5 % (0-4.4); Hematocrit 40.5 % (37.0-47.0); Hemoglobin 13.5 g/dL (12.0-15.0); Immature Granulocyte Absolute 0.01 K/mm3 (0.00-0.031); Immature Granulocyte Percent A 0.2 % (0-0.5); Lymphocytes Absolute Auto 0.94 K/mm3 (0.9-3.2); Lymphocytes Percent Auto 17.7 % (18.3-44.2); Mean Corpuscular HGB Conc 33.3 g/dl (32-36); Mean Corpuscular Hemoglobin 33.8 pg (26-34); Mean Corpuscular Volume 101.3 fl (80-100); Mean Platelet Volume 9.3 fl (7.4-10.4); Monocytes Absolute Auto 0.5 K/mm3 (0.1-0.6); Monocytes Percent Auto 9.4 % (2.6-8.5); Neutrophils Absolute Auto 3.6 K/mm3 (1.3-6.7); Neutrophils Percent Auto 67.3 % (45.5-73.1); Platelet Count Result 236 k/mm3 (150-375); Red Cell Distribution Width 12.7 % (11.5-14.5); White Blood Count 5.3 K/mm3 (4.5-10.0)
[2023-04-17 06:31] LABS: Lactic Acid Reflex 0.6 mmol/L (0.7-2.0)
[2023-04-17 06:36] LABS: Alanine Aminotransferase 45 U/L (6-35); Albumin Level 3.6 g/dL (3.5-5.1); Alkaline Phosphatase 60 U/L (38-126); Anion Gap 3 mmol/L (8-16); Aspartate Amino Transferase 45 U/L (14-36); Bilirubin,Total 0.4 mg/dL (0.2-1.3); Blood Urea Nitrogen 9 mg/dL (7-17); Calcium 8.5 mg/dL (8.4-10.2); Carbon Dioxide 30 mmol/L (22-30); Chloride 106 mmol/L (98-107); Creatine Kinase 35 U/L (30-135); Estimated CRCL calculation 93 ml/min; Estimated Glomerular Filt Rate > 60; Glucose 83 mg/dL (65-110); Magnesium 1.9 mg/dL (1.6-2.3); Sodium 139 mmol/L (137-145)
[2023-04-17] MEDS: PANTOPRAZOLE SODIUM IV 40 MG VIAL IV PUSH (09:42)
[2023-04-17] MEDS: ACETAMINOPHEN 325 MG TABLET 650 MG PO (09:48)
[2023-04-17] MEDS: IBUPROFEN 600 MG TABLET PO (09:49)
--- NOTE | 2023-04-17 10:09 | PM.DS ---
DS: Admitting Diagnosis Discharge Date 04/17/2023 Admitting Diagnosis cellulitis of right thigh depression anxiety chronic GERD history of tobacco use DS: Discharge Diagnosis Discharge Diagnosis (1) Cellulitis of right thigh: Code(s): L03.115 - Cellulitis of right lower limb Status: Acute (2) Dog bite of right thigh: Qualifiers: Encounter type: initial encounter Qualified Code(s): S71.151A - Open bite, right thigh, initial encounter; W54.0XXA - Bitten by dog, initial encounter Code(s): S71.151A - Open bite, right thigh, initial encounter; W54.0XXA - Bitten by dog, initial encounter Status: Acute (3) History of tobacco use: Code(s): Z87.891 - Personal history of nicotine dependence Status: Acute (4) Anxiety: Code(s): F41.9 - Anxiety disorder, unspecified Status: Acute (5) Depression: Qualifiers: Depression Type: unspecified Qualified Code(s): F32.A - Depression, unspecified Code(s): F32.A - Depression, unspecified Status: Acute DS: Summary Hospital Course Reason for hospitalization: Worsening infected dog bite wound to right thigh and left calf despite 4 days of Augmentin. Hospital Course: Patient presented to the emergency department due to significant pain and weeping at site of dog bites. Health department was contacted and determined that patient does not need rabies treatment. Tetanus was updated. patient was started on IV Unasyn (received 4 doses IV) and given PRN pain medication. This morning on rounds patient stated no fevers, pain is improved with PRN meds and only evidence of prior slight oozing of thin brown drainage. Site is bruised around the bites but no induration or fluctuance, only minimal erythema directly at puncture sites only. Patient is requesting discharge today. She notes she will take antibiotics as prescribed. She requested pain medication as well due to major bruising around wounds. Prescription written for a few hydrocodone, Motrin, Augmentin and Nicotine patches. Time spent discussing smoking cessation with patient: 3 to 10 minutes Status at Discharge Cognitive/behavioral status at discharge: Awake, alert and oriented Functional status at discharge: independent ambulation Time Spent with Patient Time attestation: Total time spent providing and/or coordinating discharge services: Time spent: Greater than 30 minutes Exam Const: General: cooperative, healthy appearing, comfortable, no acute distress, well developed, alert, awake, Physically active, average body habitus and well nourished Nutritional Appearance: average body habitus and well nourished Orientation/consciousness: oriented to person, oriented to place, oriented to time and patient oriented x3 Limitations: no limitations HENMT: Head: normal to inspection, No palpable skull fracture present, normocephalic and atraumatic Ears: hearing grossly normal bilaterally and external ears normal Face/Nose/Sinus: Normal external nose present and Normal nares present Eyes: General: appearance normal, both eyes and all related structures Alignment and Position: alignment normal Periorbital: periorbital findings normal Eyelids: eyelids normal Sclera: sclerae normal Pupils: Equal, round and reactive pupils present EOM: EOMs intact bilaterally Neck: Neck: normal visual inspection, full ROM, no lymphadenopathy, trachea midline and supple Chest: Chest palpation & inspection: normal inspection of the chest Resp: Effort & Inspection: normal respiratory effort Auscultation: clear to auscultation bilaterally Cardio: Palpation: normal PMI Rate: regular rate Rhythm: regular rhythm Heart sounds: S1 normal heart sound present and S2 normal heart sound present Peripheral pulses: Peripheral pulses 2+ throughout GI: Inspection: normal to inspection Auscultation: normal bowel sounds Rectal Exam: deferred Back/Spine/Pelvis: Cervical Spine: cervical ROM nor
== END 2023-04-17 13:30 | disposition home or self-care (01) ==
LOC: ANHED 14:55 → ANH3MEDSUR 16:46
PROVIDERS: Nurse Practitioner; Admitting Provider Internal Medicine; Emergency Provider Physician Assistant; Visit Provider Nurse Practitioner
DX: L03.115 Cellulitis of right lower limb (principal); S71.151A Open bite, right thigh, initial encounter; W54.0XXA Bitten by dog, initial encounter; Y93.01 Activity, walking, marching and hiking; Z23 Encounter for immunization; Y92.9 Unspecified place or not applicable; R50.9 Fever, unspecified; F41.9 Anxiety disorder, unspecified; F32.A Depression, unspecified; F17.210 Nicotine dependence, cigarettes, uncomplicated; F10.90 Alcohol use, unspecified, uncomplicated
CPT/HCPCS: 36415; 76882; 80053; 82550; 83605; 83735; 84443; 85025; 85652; 86140; 90471; 90715; 96365; 96366; 96375; 99285; A9270; C9113; G0378; J0295; J2270; J2405

== ENCOUNTER 2023-10-31 08:26 | Emergency (ER) | payer BC, SELFPAY ==
--- NOTE | ~2023-10-31 | XR_ITS ---
EXAMINATION: XR chest 2V DATE: 10/31/2023 08:49 INDICATION: Productive cough. Chest pain. Shortness of breath. TECHNIQUE: Frontal and lateral views of the chest were obtained. COMPARISON: Chest 2 views 12/04/2021 FINDINGS: There is no pneumonia, pleural effusion, or pneumothorax. The heart size is normal. Surgica l clips in the right upper quadrant are likely from cholecystectomy. IMPRESSION: 1. No acute cardiopulmonary disease. Reviewed, dictated and finalized at location A. CONTROL CLERK
--- NOTE | 2023-10-31 08:31 | ED.URI ---
HPI - URI/Sore Throat General Chief Complaint: Upper Respiratory Infection Stated Complaint: Sinus Time Seen by Provider: 10/31/23 08:32 Source: patient Mode of arrival: ambulatory Limitations: no limitations History of Present Illness HPI Narrative: Lucy is a 38-year-old female patient presenting to the clinic today with complaints of sinus congestion for over 1 week. She reports symptoms got worse on Friday. Is coughing up and blowing out green nasal drainage. States that she is having some pain in her lungs from coughing. Began having fever yesterday. MD elicited complaint: sore throat and nasal congestion Related Data Allergies Allergy/AdvReac Type Severity Reaction Status Date / Time No Known Allergies Allergy Verified 10/31/23 08:30 Review of Systems Review of Systems: Pertinent positives per HPI. Patient denies any fever, chills, rash, headache, visual changes, dizziness, chest pain, palpitations, nausea, vomiting, diarrhea, constipation, abdominal pain, or any urinary issues. PMFSH Past Medical History Medical History Alcohol withdrawal Anxiety Fatigue Surgical History Surgical History History of section, classical X2 History of fundoplication Hx of cholecystectomy Family History Family History Mother Hypertension Family history of elevated blood lipids Family history of malignant neoplasm of breast in first degree relative Family history of hypothyroidism Family history of malignant neoplasm of cervix Grandparent Cerebrovascular accident, Onset Age: 54 Father Depression Other Carcinoma of colon Family history of cardiovascular disease Family history of emphysema Family history of malignant neoplasm Social History Social History Social History: The patient stated that she is not currently working. She lives with her boyfriend. She has 2 children. She stated that she had history of alcoholism but went to rehab and has not been drinking heavily she occasionally has a drink. She states that she is down to about 5 cigarettes a day. Code status full code Smoking packs per day: 0.5 Smoking cigarettes per day: 10.0 Years smoked: 23 Smoking pack-years: 11.50 Smoking status: Current every day smoker Tobacco type: cigarettes Second hand tobacco smoke exposure: No Alcohol intake: current Drinks per week: 15 Substance use: former Substance use type: does not use Lack of Transportation: No Lack of Food: Never True Current Housing: I Have Housing Concerned About Future Housing: No Difficulty Paying Gas/Electric Bills: No Difficulty Paying for Meds: No Currently Unemployed: No Education: Trade/Vocational Certificate Difficulty w/ Childcare or Family Care: No Spiritual care concerns: No Comments At the time of my signature, I reviewed and agree with the nursing past medical, surgical, social, and family history. There is no relevant family history pertinent to the patient complaint. Exam Narrative: General: Well-developed, well nourished, in no apparent distress Head: Normocephalic, atraumatic Eyes: Pupils equally round and reactive to light bilaterally, EOM intact, sclera and conjunctive clear, no discharge, lids normal Ears: TMs intact and congested, ear canals clear, no drainage, grossly hearing normal. Nose: Nares patent, green nasal discharge, severe inflammation, maxillary and frontal sinus tenderness. Mouth: Oral pharynx red without lesions or masses, good dentition, MMM. Neck: Supple, trachea midline, no enlargement of anterior or posterior cervical nodes, no thyroid masses or goiter palpable. Cardio: Regular rate and rhythm, s1 and s2 normal, no murmur appreciated. R
[2023-10-31 08:37] VITALS: BP 133/94; PULSE 102; RESP 18; TEMP 36.7; O2SAT 100
== END 2023-10-31 09:15 | disposition home or self-care (01) ==
PROVIDERS: Emergency Provider Nurse Practitioner Family; PCP Physician Assistant
DX: J01.90 Acute sinusitis, unspecified (principal); Z20.822 Contact with and (suspected) exposure to COVID-19; F17.210 Nicotine dependence, cigarettes, uncomplicated
CPT/HCPCS: 71046; 87426; 87804; 99213; G0463

== ENCOUNTER 2024-12-08 13:31 | Outpatient (CLI) | payer OTHER, SELFPAY ==
--- NOTE | ~2024-12-08 | CT_ITS ---
CLINICAL INDICATION: Abdominal pain COMPARISON: None. TECHNIQUE: Multiple contiguous axial images of the abdomen and pelvis were performed following the ad ministration of with 100 mL Omnipaque-350 intravenous contrast The dose-length product (DLP) was 398.60 mGy-cm. Automated exposure control and iterative reconstruction technique were employed. FINDINGS/OBSERVATIONS: Visualized lower thorax: The bilateral lung bases are clear. The heart is of normal size, without pericardial effusion. Small hiatal hernia is present. Liver: The liver demonstrates homogeneous decreased enhancement (consistent with fatty infiltration) and is not enlarged measuring 17 cm in longitudinal dimension. Gallbladder and biliary system: The gallbladder is surgically absent. Pancreas: The pancreas enhances homogeneously without ductal dilatation. Spleen: The spleen enhances homogeneously and is not enlarged measuring 8 cm in longitudinal dimension. Kidneys: The bilateral kidneys enhance symmetrically without hydronephrosis or renal calculi. Adrenal glands: Unremarkable. Gastrointestinal tract: Mural thickening and edema is identified within the ascending colon with trace surrounding inflammato ry change, findings suggesting a focal enteritis. Remaining colon and small bowel loops are unremarka ble. Appendix: The air-filled appendix is of normal caliber (axial series, images 112 through 130) Vasculature: Unremarkable. Lymph nodes: No pathologically enlarged or morphologically suspicious lymph nodes within the retroperitoneum or at the root of the mesentery. Pelvic structures: The bladder is minimally distended, and otherwise unremarkable. The uterus is anteverted and anteflexed. An intrauterine device is detected, in good position. Body wall and musculoskeletal: Small fat-containing umbilical hernia. No significant degenerative disease within the lower thoracic or lumbosacral spine. IMPRESSION: Fatty infiltration of the liver. Findings within the ascending colon suggesting a focal enteritis for which clinical correlation is ne eded. Reviewed, dictated and finalized at location A. IMPRESSION: Fatty infiltration of the liver. Findings within the ascending colon suggesting a focal enteritis for which clin ical correlation is needed.
[2024-12-08 14:18] LABS: Basophils Absolute Auto 0.1 K/mm3 (0.0-0.1); Basophils Percent Auto 1.4 % (0.2-1.2); Eosinophils Absolute Auto 0.4 K/mm3 (0-0.3); Eosinophils Percent Auto 5.6 % (0-4.4); Hematocrit 43.2 % (37.0-47.0); Hemoglobin 14.5 g/dL (12.0-15.0); Immature Granulocyte Absolute 0.02 K/mm3 (0.00-0.031); Immature Granulocyte Percent A 0.3 % (0-0.5); Lymphocytes Absolute Auto 2.17 K/mm3 (0.9-3.2); Lymphocytes Percent Auto 28.3 % (18.3-44.2); Mean Corpuscular HGB Conc 33.6 g/dl (32-36); Mean Corpuscular Hemoglobin 34.4 pg (26-34); Mean Corpuscular Volume 102.4 fl (80-100); Monocytes Absolute Auto 0.7 K/mm3 (0.1-0.6); Neutrophils Absolute Auto 4.3 K/mm3 (1.3-6.7); Neutrophils Percent Auto 55.4 % (45.5-73.1); Platelet Count Result 270 k/mm3 (150-375); Red Blood Count 4.22 M/mm3 (4.2-5.4); Red Cell Distribution Width 13.9 % (11.5-14.5); White Blood Count 7.7 K/mm3 (4.5-10.0)
[2024-12-08 14:33] LABS: Alanine Aminotransferase 56 U/L (6-35); Albumin Level 5.1 g/dL (3.5-5.1); Alkaline Phosphatase 75 U/L (38-126); Anion Gap 19 mmol/L (4-12); Aspartate Amino Transferase 98 U/L (14-36); Bilirubin,Total 0.6 mg/dL (0.2-1.3); Blood Urea Nitrogen 7 mg/dL (7-17); Carbon Dioxide 19 mmol/L (22-30); Chloride 104 mmol/L (98-107); Estimated Glomerular Filt Rate > 60; Glucose 74 mg/dL (65-110); Lipase 105 U/L (23-300); Potassium 4.7 mmol/L (3.4-5.0); Sodium 142 mmol/L (137-145)
--- OUTSIDE RECORDS SUMMARY | 2024-12-08 15:11 | XMS_ITS | Referral Summary ---
Author Organization [facility] Address [address] [place] [address] Care Team Providers Care Scientist Immunology Name Role Phone Jose Juan Gongora MD Primary Care Provider [phone] Source Comments [facility],non-owned Affiliates and Associated Physician Practices is amultiple site organization consisting of ambulatory clinics and [place]in [place] and [place]. This disclosure is being madepursuant to the Care Everywhere program and may not contain all information available regarding this patient. Last updated 18.[facility] Allergies No known active allergies Medications * Be aware that medications may not be up to date on this document. Alwaysverify current medications with the patient. Medication Sig Dispensed Refills Start Date End Date Status citalopram (CELEXA) 20 MG tablet Take 20 mg by mouth at bedtime Active buPROPion XL 24hr (WELLBUTRIN-XL) 150 MG tablet Take 150 mg by mouth once daily Active acetaminophen (TYLENOL) 325 MG tablet Take 2 Tabs by mouth every 4 hours as needed Maximum allowable Acetaminophen amount = 4 Grams (4000 mg) / 24 hours. 05/23/2015 Active chlordiazePOXIDE (LIBRIUM) 25 MG capsule Take 1 Cap by mouth 3 times daily as needed for Anxiety or Agitation 20 Cap 0 05/23/2015 Active Active Problems Problem Noted Date Diagnosed Date Altered mental status 05/23/2015 Social History Tobacco Use Types Packs/Day Years Used Date Smoking Tobacco: Former Smokeless Tobacco: Never Alcohol Use Standard Drinks/Week Comments Yes 0 (1 standard drink = 0.6 oz pur e alcohol) pt states occassionally . Sex and Gender Information Value Date Recorded Sex Assigned at Not on file Gender Identity Not on file Sexual Orientation Not on file Last Filed Vital Signs Vital Sign Reading Time Taken Comments Blood Pressure 128/110 12/25/2021 1:28 PM CDT Pulse 117 12/25/2021 1:28 PM CDT Temperature 36.6 C (97.8 F) 12/25/2021 1:28 PM CDT Respiratory Rate 19 12/25/2021 1:28 PM CDT Oxygen Saturation 93% 12/25/2021 1:28 PM CDT Inhaled Oxygen Concentration - - Weight 62 kg (136 lb 11 oz) 05/23/2015 1:53 AM C DT Height 162.6 cm (5' 4 ) 05/23/2015 4:18 AM CDT Body Mass Index 23.46 05/23/2015 1:53 AM CDT Functional Status Functional Status Response Date of Assess ment Is person deaf or have serious hearing difficult y? No 05/23/2015 Is person blind or have serious difficulty seein g? No 05/23/2015 Does person have serious dif ficulty walking/climbing stairs? No 05/23/2015 Does person have difficulty dressing/bathing? No 05/23/2015 Does person have difficulty doing errands alone? No 05/23/2015 Cognitive Status Response Date of Assessm ent Does person have difficulty concentrating/remembering/making decisions? No 05/23/2015 Plan of Treatment Not on file Advance Directives * Full Code (Latest Code Status on File) Date Activated Date Inactivated Comments 05/23/2015 1:48 AM 05/23/2015 6:28 PM Care Teams Scientist Immunology Relationship Specialty Start Date End Date Jose Juan Gongora MD [address] [place] [id number] PCP - General 01/23/18
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
--- OUTSIDE RECORDS SUMMARY | 2024-12-08 15:11 | XMS_ITS | Clinical Summary ---
Author Organization [facility] Address [facility] [place] [address] Care Team Providers Care Energy Sales Broker Name Role Phone None, Provider MD Primary Care Provider Unavaila ble Allergies No known active allergies Medications ALPRAZolam 1 MG tablet Take 1 mg by mouth 3 (three) times daily as needed. Active Social History Tobacco Use Types Packs/Day Years Used Date Smoking Tobacco: Never Assessed Comments Unknown Sex and Gender Information Value Date Recorded Sex Assigned at Not on file Legal Sex Female 2:05 PM CDT Gender Identity Not on file Sexual Orientation Not on file Last Filed Vital Signs Vital Sign Reading Time Taken Comments Blood Pressure 112/72 12/26/2021 6:19 PM CDT Pulse 110 12/26/2021 2:24 PM CDT Temperature 36.4 C (97.5 F) 12/26/2021 2:24 PM CDT Respiratory Rate 18 12/26/2021 6:26 PM CDT Oxygen Saturation 96% 12/26/2021 2:24 PM CDT Inhaled Oxygen Concentration - - Weight 56.7 kg (125 lb) 12/26/2021 2:24 PM CDT Height 162.6 cm (5' 4 ) 12/26/2021 2:24 PM CDT Body Mass Index 21.46 12/26/2021 2:24 PM CDT Plan of Treatment Health Maintenance Due Date Last Done Comments Cervical Cancer Screening Pa p Smear (Age 30 to 64) Every 3 Years 1985 Annual Physical 1988 Hepatitis C 2003 Hepatitis B Vaccines (1 of 3 - 19+ 3-dose series) 2004 Cervical Cancer Screening Pa p with HPV Testing (Age 30 to 64) Every 5 Years 2015 Cervical Cancer Screening with HPV 2015 COVID-19 Vaccine (2 - 2023-2 5 season) 2024 12/25/2020 Influenza Adult (#1) 2024 DTaP, Tdap and Td Vaccines ( 2 - Td or Tdap) 06/08/2027 06/08/2017 HPV Vaccines Aged Out No longer eligi ble based on patient's age to complete this topic Meningococcal B Vaccine Aged Out No l onger eligible based on patient's age to complete this topic Meningococcal Vaccine Aged Out No frandy joaquim eligible based on patient's age to complete this topic Pneumococcal Vaccine: Pediat rics (0 to 5 Years) and At-Risk Patients (6 to 64 Years) Aged Out No longer eligi ble based on patient's age to complete this topic RSV Immunizations Under 20 Months Aged Out No longer eligible based on patient's age to complete this topic Insurance Care Teams Energy Sales Broker Relationship Specialty Start Date End Date None, Provider, PCP - General 12/26/21
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
--- OUTSIDE RECORDS SUMMARY | 2024-12-08 15:11 | XMS_ITS | Clinical Summary ---
Author Organization [facility] Address [address] [facility] [place] [address] Care Team Providers Care Hot Mix Operator Name Role Phone Jose Juan Gongora MD Primary Care Provider [phone] Source Comments [facility],non-owned Affiliates and Associated Physician Practices is amultiple site organization consisting of ambulatory clinics and hospital sitesin [place], [place], [place] and [place]. This disclosure is being madepursuant to the Care Everywhere program and may not contain all information available regarding this patient. Last updated 18.[employer] Allergies No known active allergies Medications * [...] Mass Index 23.46 05/23/2015 1:53 AM CDT Plan of Treatment Health Maintenance Due Date Last Done Comments PAP SMEAR 1985 HIV SCREENING 2000 HEPATITIS C SCREENING 03/29/2003 DTAP/TDAP/TD VACCINES (1 - Tdap) 2004 HEPATITIS B VACCINE (1 of 3 - 19+ 3-dose series) 2004 COVID-19 VACCINE (1 - 2023-2 5 season) 2024 INFLUENZA VACCINE (#1) 2024 DEPRESSION SCREENING 09/29/2024 ZOSTER VACCINE (1 of 2) 2035 HIB VACCINE Aged Out No longer eligi ble based on patient's age to complete this topic HPV VACCINE Aged Out No longer eligi ble based on patient's age to complete this topic MENINGOCOCCAL (Group B) VACC INE SHARED DECISION-MAKING Aged Out No longer eligibl e based on patient's age to complete this topic MENINGOCOCCAL GROUPS A/C/Y/W VACCINE Aged Out No longer eligible b ased on patient's age to complete this topic PNEUMOCOCCAL VACCINE Aged Out No long er eligible based on patient's age to complete this topic Advance Directives * Full Code (Latest Code Status on File) Date Activated Date Inactivated Comments 05/23/2015 1:48 AM 05/23/2015 6:28 PM Care Teams Hot Mix Operator Relationship Specialty Start Date End Date Jose Juan Gongora MD [address] [facility] [address] [place] [address] PCP - General 01/23/18
--- OUTSIDE RECORDS SUMMARY | 2024-12-08 15:11 | XMS_ITS | Continuity of Care Document ---
Author Organization [facility] Address [address] [place] [address] Phone Care Team Providers Care Assistant Hvac Mechanic Name Role Phone Kate Balderas MD Unavailable Unavailabl e Allergies, Adverse Reactions, Alerts Substance Reaction Status Criticality No Known Drug Allergies Other Active No I nformation Medications Medication Instructions Dosage Effective Dates (start - s top) Status Comments LEXAPRO 20MG TABS 1 QD - Active Advance Directives Directive Yes / No Effective Date File Name No Information Encounters Encounter Description Practice Location Reason(s) For Visit Diagnoses Date Provider Providers Copied on Encounter [facility], [address], [place], [place], [id number], tel:[phone] Tanna No Information Sherrie Moffettorah. [address] [place], [place], [id number]. tel:[phone] [facility], [address], [place], [place], [id number], tel:[phone] Tanna RECURR DEPR PSYCHOS-MODESOP HAGEAL REFLUXROUTINE MEDICAL EXAM Balderas Kate. [address] [place], [place], [id number]. tel:[phone] Family History Family Member Type Diagnosis Age At Onset No Information Payers Payer name Insurance type Covered libertarian ID Authoriza tion(s) No Information Social History Type Description Quantity Date Captured Comments Sex Female Smoking Status No Information Chief Complaint And Reason For Visit No Information Reason For Referral Reason For Referral No Information History Of Present Illness Encounter Date Complaint History Of Prese nt Illness No Information Functional Status Date Functional Assessmen t No Information Instructions Date Instruction Additional Infor mation No Information Assessments Type Assessment Date No Information Patient Care Teams Name Effective Dates (start - stop) Status Members No Information
--- OUTSIDE RECORDS SUMMARY | 2024-12-08 15:11 | XMS_ITS | Patient Health Summary ---
Author Organization [facility] Address [address] [place] [address] Care Team Providers Care Water Server Name Role Phone Jose Juan Gongora MD Primary Care Provider [phone] Note from [facility],non-owned Affiliates and Associated Physician Practices is amultiple site organization consisting of ambulatory clinics and hospital sitesin [place], [place], [place] and [place]. This disclosure is being madepursuant to the Care Everywhere program and may not contain all information available regarding this patient. Last updated 18.[facility] Allergies No known active allergies Medications * Be aware that medications may not be up to date on this document. Alwaysverify current medications with the patient. * citalopram (CELEXA) 20 MG tablet Take 20 mg by mouth at bedtime * buPROPion XL 24hr (WELLBUTRIN-XL) 150 MG tablet Take 150 mg by mouth once daily * acetaminophen (TYLENOL) 325 MG tablet(Started 05/23/2015) Take 2 Tabs by mouth every 4 hours as needed Maximum allowable Acetaminophen amount = 4 Grams (4000mg) / 24 hours. * chlordiazePOXIDE (LIBRIUM) 25 MG capsule(Started 05/23/2015) Take 1 Cap by mouth 3 times daily as needed for Anxiety or Agitation Active Problems Problem Noted Date Diagnosed Date [...] Mass Index 23.46 05/23/2015 1:53 AM CDT Procedures * CARDIAC RHYTHM STRIP ORDER(Performed 05/25/2015) * ALCOHOL ETHYL BLOOD(Performed 05/23/2015) Performed for Alcohol intoxication, with unspecified complication (HCC), Mental status, decreased, Alcohol intoxication (HCC) * BASIC METABOLIC PANEL (CALCIUM TOTAL)(Performed 05/23/2015) Performed for Alcohol intoxication, with unspecified complication (HCC), Mental status, decreased, Alcohol intoxication (HCC) * URINALYSIS REFLEX TO MICROSCOPIC NO CULTURE(Performed 05/22/2015) * URINE DRUG SCREEN IMMUNOASSAY(Performed 05/22/2015) * CT HEAD WO CONTRAST(Performed 05/22/2015) * ACETAMINOPHEN LEVEL(Performed 05/22/2015) * SALICYLATE LEVEL BLOOD(Performed 05/22/2015) * ALCOHOL ETHYL BLOOD(Performed 05/22/2015) * COMPREHENSIVE METABOLIC PANEL(Performed 05/22/2015) * CBC W AUTO DIFFERENTIAL(Performed 05/22/2015) * EKG 12-LEAD(Performed 05/22/2015) * CULTURE URINE(Performed 03/16/2014) * GROSS + MICRO EXAM(Performed 06/18/1999) * GROSS + MICRO EXAM(Performed 09/20/1998) Results * CARDIAC RHYTHM STRIP ORDER (05/25/2015 1:20 AM CDT) Narrative 05/25/2015 1:20 AM CDT Ordered by an unspecified provider. Scanned Document CARDIAC SERVICES ORD ERABLES * (ABNORMAL) BASIC METABOLIC PANEL (CALCIUM TOTAL) (05/23/2015 3:56 AM CDT) Glucose 83 74 - 106 mg/dL 05/23/2015 6:10 AM CDT [facility] Sodium 145 136 - 145 mmol/L 05/23/2015 6:10 AM CDT [facility] Potassium 4.0 3.5 - 5.1 mmol/L 05/23/2015 6:10 AM CDT [facility] Chloride 113(H) 98 - 107 mmol/L 05/23/2015 6:10 AM CDT [facility] CO2 24 22 - 31 mmol/L 05/23/2015 6:10 AM CDT [facility] Calcium 7.7(L) 8.5 - 10.1 mg/dL 05/23/2015 6:10 AM CDT [facility] Anion Gap 8 5 - 20 mmol/L 05/23/2015 6:10 AM CDT [facility] BUN 10 7 - 21 mg/dL 05/23/2015 6:10 AM CDT [facility] Creatinine 0.55 0.50 - 1.30 mg/dL 05/23/2015 6:10 AM CDT [facility] eGFR by MDRD >60 >60 mL/min/1.7 3m2 05/23/2015 6:10 AM CDT [facility] eGFR by MDRD >60 >60 mL/min/1.7 3m2 05/23/2015 6:10 AM CDT [facility] Blood BLOOD SPECIMEN / Unknown 05/23/2015 3:56 AM CDT 05/23/2015 5:50 AM CDT Dante Sears PA-C LAB - CHEM ISTRY ORDERABLES [facility] [address] [place] [address] * (ABNORMAL) ALCOHOL ETHYL BLOOD (05/23/2015 3:56 AM CDT) Only the most recent of2 resultswithin the time period is included. Ethanol 286(HH) <10 mg/dL 05/23/2015 6:18 AM CDT [facility] Ethanol Calculated 0.286(HH) <0.100 gm/dL 05/23/2015 6:18 AM CDT [facility] Blood BLOOD SPECIMEN / Unknown 05/23/2015 3:56 AM CDT 05/23/2015 5:50 AM CDT Narrative [facility] - 05/23/2015 6:18 AM CDT Non Legal Serum Alcohol Dante Sears PA-C LAB - CHEM ISTRY ORDERABLES Performing Organization Address [facility] Co de Phone Number [facility] [address] [place] [address] * URINALYSIS ROUTINE AUTO (05/22/2015 10:58 PM CDT) Color UA Yellow Straw, Yellow, Dark Yellow 05/22/2015 11:07 PM CDT [facility] Clarity UA Cloudy 05/22/2015 11:07 PM CDT [facility] Specific Beatrice UA 1.010 1.005 - 1.030 05/22/2015 11:07 PM CDT [facility] pH UA 5.5 5.0 - 8.0 pH 05/22/2015 11:07 PM CDT [facility] Protein UA Negative Negative 05/22/2015 11:07 PM CDT [facility] Blood UA Negative Negative 05/22/2015 11:07 PM CDT [facility] Leukocyte UA Negative Negative 05/22/2015 11:07 PM CDT [facility] Nitrite UA Negative Negative 05/22/2015 11:07 PM CDT [facility] Glucose UA Negative Negative 05/22/2015 11:07 PM CDT [facility] Ketone UA Negative Negative 05/22/2015 11:07 PM CDT [facility] Bilirubin UA Negative Negative 05/22/2015 11:07 PM CDT [facility] Urobilinogen UA 0.2 0.1 - 1.0 EU/dL 05/22/2015 11:07 PM CDT [facility] Urine URINE SPECIMEN OBTAINED BY CLEAN CATCH PROCEDURE / Unknown 05/22/2015 10:58 PM CDT 05/22/2015 11:01 PM CDT Meño Leiva MD LAB - URINALYSIS ORD ERABLES Performing Organization Address [facility] Co de Phone Number [facility] [address] [place] [address] * DRUG SCREEN TOX URINE PANEL (05/22/2015 10:58 PM CDT) Amphetamines Screen Urine Not Detected Not Detected 05/22/2015 11:16 PM CDT [facility] Barbiturates Screen Urine Not Detected Not Detected 05/22/2015 11:16 PM CDT [facility] Benzodiazepines Screen Urine Not Detected Not Detected 05/22/2015 11:16 PM CDT [facility] Cannabinoids Screen Urine Not Detected Not Detected 05/22/2015 11:16 PM CDT [facility] Cocaine Screen Urine Not Detected Not Detected 05/22/2015 11:16 PM CDT [facility] Methadone Screen Urine Not Detected Not Detected 05/22/2015 11:16 PM CDT [facility] Opiate Screen Urine Not Detected Not Detected 05/22/2015 11:16 PM CDT [facility] Phencyclidine Screen Urine Not Detected Not Detected 05/22/2015 11:16 PM CDT [facility] Urine URINE / Unknown 05/22/2015 1 0:58 PM CDT 05/22/2015 11:01 PM CDT Narrative [facility] - 05/22/2015 11:16 PM CDT This drug screen is designed for MEDICAL purposes only. It is not to be used for legal purposes, including but not limited to worker's comp, police investigations, occupational issues, child custody, etc. Any positive result is only presumptive and must be confirmed with a separate confirmatory test ordered by the physician. Drug Screening Test Cutoff Values: AMPHETAMINES 1000 ng/ml BARBITURATES 200 ng/ml BENZODIAZEPINES 200 ng/ml CANNABINOIDS(THC) 50 ng/ml COCAINE 300 ng/ml METHADONE 300 ng/ml OPIATES 300 ng/ml PHENCYCLIDINE(PCP)25 ng/ml Meño Leiva MD LAB - URINE CHEMISTR Y ORDERABLES [facility] [address] [place] [address] * CT HEAD NON CONTRAST (05/22/2015 10:51 PM CDT) Anatomical Region Laterality Modality Head Computed Tomogra phy 05/22/2015 11:0 1 PM CDT Impressions 05/22/2015 11:02 PM CDT No acute intracranial findings. Emergency noncontrast brain CT. Please see above. Sinus disease as noted above. Narrative 05/22/2015 11:02 PM CDT EXAMINATION: CT BRAIN WITHOUT CONTRAST. Indication: pt was on plane and and vomited then became non-responsive, ETOH 431, altered mental status Technique: Emergency noncontrast axial images of the brain were filmed with a slice width of 5 mm at the time of the patient's presentation. This CT report was transcribed with a computerized speech recognition system. In an effort to expedite patient care, it has not been adjusted for typographical, grammatical or syntax problems by a trained medical research assistant. Findings: The bone window images show soft tissue thickening in the left sphenoid sinus and some of the ethmoid sinus air cells bilaterally. There is no intracranial mass-effect or midline shift identified. The ventricular system is normal in size for the stated age. No focal intraparenchymal hemorrhage can be identified. No cortical infarction can be seen. If the patient's symptoms persist or worsen, a followup brain CT or MRI is recommended for further evaluation. Procedure Note Carlton Dela Cruz MD - 05/22/2015 EXAMINATION: CT BRAIN WITHOUT CONTRAST. Indication: pt was on plane and and vomited then became non-responsive, ETOH 431, altered mental status Technique: Emergency noncontrast axial images of the brain were filmed with a slice width of 5 mm at the time of the patient's presentation. This CT report was transcribed with a computerized speech recognition system. In an effort to expedite patient care, it has not been adjusted for typographical, grammatical or syntax problems by a trained medical research assistant. Findings: The bone window images show soft tissue thickening in the left sphenoid sinus and some of the ethmoid sinus air cells bilaterally. There is no intracranial mass-effect or midline shift identified. The ventricular system is normal in size for the stated age. No focal intraparenchymal hemorrhage can be identified. No cortical infarction can be seen. If the patient's symptoms persist or worsen, a followup brain CT or MRI is recommended for further evaluation. IMPRESSION No acute intracranial findings. Emergency noncontrast brain CT. Please see above. Sinus disease as noted above. Meño Leiva MD CT ORDERABLES * (ABNORMAL) CBC W AUTO DIFFERENTIAL (05/22/2015 10:20 PM CDT) [facility] WBC 9.9 4.4 - 10.7 x10^9/L 05/22/2015 10:23 PM CDT [facility] WBC Corrected x10^9/L 05/22/2015 10:23 PM CDT [facility] RBC 4.12 3.80 - 5.20 x10^12/L 05/22/2015 10:23 PM CDT [facility] Hemoglobin 13.8 12.0 - 15.6 gm/dL 05/22/2015 10:23 PM CDT [facility] Hematocrit 40.4 35.9 - 45.5 % 05/22/2015 10:23 PM CDT [facility] MCV 98.1 80.7 - 98.3 fl 05/22/2015 10:23 PM CDT [facility] MCH 33.5 26.7 - 34.0 pg 05/22/2015 10:23 PM CDT [facility] MCHC 34.2 30.8 - 35.9 gm/dL 05/22/2015 10:23 PM CDT [facility] Platelet Count 257 153 - 416 x10^9/L 05/22/2015 10:23 PM CDT [facility] RDW-CV 12.5 12.1 - 14.9 % 05/22/2015 10:23 PM CDT [facility] MPV 9.1(L) 9.4 - 12.9 fl 05/22/2015 10:23 PM CDT [facility] Neutrophils % 51.1 44.0 - 73.0 % 05/22/2015 10:23 PM CDT [facility] Lymphocytes % 38.8 20.0 - 43.0 % 05/22/2015 10:23 PM CDT [facility] Monocytes % 4.2(L) 5.0 - 13.0 % 05/22/2015 10:23 PM CDT [facility] Eosinophils % 5.5 0.0 - 6.0 % 05/22/2015 10:23 PM CDT [facility] Basophils % 0.3 0.0 - 2.0 % 05/22/2015 10:23 PM CDT [facility] Immature Granulocytes 0.1 0 - 1 % 05/22/2015 10:23 PM CDT [facility] Neutrophil Absolute 5.05 2.01 - 7.14 x10^9/L 05/22/2015 10:23 PM CDT [facility] Lymphocytes Absolute 3.84 1.07 - 3.94 x10^9/L 05/22/2015 10:23 PM CDT [facility] Monocytes Absolute 0.42 0.26 - 1.07 x10^9/L 05/22/2015 10:23 PM CDT [facility] Eosinophils Absolute 0.54(H) 0 - 0.47 x10^9/L 05/22/2015 10:23 PM CDT [facility] Basophils Absolute 0.03 0 - 0.08 x10^9/L 05/22/2015 10:23 PM CDT [facility] Immature Granulocytes Absolute 0.01 0.00 - 0.06 x10^9/L 05/22/2015 10:23 PM CDT [facility] Blood BLOOD SPECIMEN / Unknown 05/22/2015 10:20 PM CDT 05/22/2015 10:20 PM CDT Meño Leiva MD LAB - HEMATOLOGY ORD ERABLES [facility] [address] [place] [address] * (ABNORMAL) COMPREHENSIVE METABOLIC PANEL (05/22/2015 10:20 PM CDT) [facility] Glucose 90 74 - 106 mg/dL 05/22/2015 10:38 PM CDT [facility] Sodium 150(H) 136 - 145 mmol/L 05/22/2015 10:38 PM CDT [facility] Potassium 4.3 3.5 - 5.1 mmol/L 05/22/2015 10:38 PM CDT [facility] Chloride 114(H) 98 - 107 mmol/L 05/22/2015 10:38 PM CDT [facility] CO2 26 22 - 31 mmol/L 05/22/2015 10:38 PM CDT [facility] Calcium 8.0(L) 8.5 - 10.1 mg/dL 05/22/2015 10:38 PM CDT [facility] Anion Gap 10 5 - 20 mmol/L 05/22/2015 10:38 PM CDT [facility] BUN 13 7 - 21 mg/dL 05/22/2015 10:38 PM CDT [facility] Creatinine 0.79 0.50 - 1.30 mg/dL 05/22/2015 10:38 PM CDT [facility] Alkaline Phosphatase 63 38 - 126 U/L 05/22/2015 10:38 PM CDT [facility] ALT 32 12 - 78 U/L 05/22/2015 10:38 PM CDT [facility] AST 25 5 - 40 U/L 05/22/2015 10:38 PM CDT [facility] Protein Total 7.2 6.4 - 8.2 gm/dL 05/22/2015 10:38 PM CDT [facility] Albumin 3.8 3.4 - 5.0 gm/dL 05/22/2015 10:38 PM CDT [facility] Bilirubin Total <0.1(L) 0.2 - 1.0 mg/dL 05/22/2015 10:38 PM CDT [facility] eGFR by MDRD >60 >60 mL/min/1.7 3m2 05/22/2015 10:38 PM CDT [facility] eGFR by MDRD >60 >60 mL/min/1.7 3m2 05/22/2015 10:38 PM CDT [facility] Blood BLOOD SPECIMEN / Unknown 05/22/2015 10:20 PM CDT 05/22/2015 10:20 PM CDT Meño Leiva MD LAB - CHEMISTRY ORDElham CEJA Performing Organization Address [facility] Co de Phone Number [facility] [address] [place] [address] * SALICYLATE LEVEL BLOOD (05/22/2015 10:20 PM CDT) Salicylate 2.1 <20.0 mg/dL 05/22/2015 11:30 PM CDT [facility] Blood BLOOD SPECIMEN / Unknown 05/22/2015 10:20 PM CDT 05/22/2015 11:16 PM CDT Meño Leiva MD LAB - CHEMISTRY ORDElham CEJA Performing Organization Address [facility] Co de Phone Number [facility] [address] [place] [address] * (ABNORMAL) ACETAMINOPHEN LEVEL (05/22/2015 10:20 PM CDT) Acetaminophen <2.0(L) 10.0 - 30.0 ug/mL 05/22/2015 11:45 PM CDT [facility] Blood BLOOD SPECIMEN / Unknown 05/22/2015 10:20 PM CDT 05/22/2015 11:16 PM CDT Narrative [facility] - 05/22/2015 11:45 PM CDT [facility] ACETAMINOPHEN COMMENT Critical values: 4 Hours Post Ingestion: Critical value > 200 g/mL 12 Hours Post Ingestion: Critical value > 50 g/mL For acute ingestion, please refer to Acetaminophen nomogram to determine the risk of toxicity based on time since ingestion and acetaminophen level (see link provided). Note the nomogram disclaimer. WARNING: Assessing the potential toxicity of an acetaminophen level on a standard risk nomogram must take into consideration many factors including any uncertainty of the time since ingestion or the possibility of other medications that may alter the peak level. Contact the [place] [facility] at or reserved for healthcare professionals to assist you in evaluating potentially toxic acetaminophen levels. Meño Leiva MD LAB - CHEMISTRY JONH CEJA [facility] Organization Address City/State/ZIP Co de Phone Number [facility] [address] [place] [address] * EKG 12-LEAD (05/22/2015 9:45 PM CDT) Ventricular Rate 97 BPM [facility] Atrial Rate 97 BPM [facility] P-R Interval 172 ms [facility] QRS Duration ms 92 ms [facility] Q-T Interval ms 354 ms [facility] QTC Calculation (Bezet) 449 ms [facility] Calculated P [place] 71 degrees [facility] Calculated R [place] 85 degrees [facility] Calculated T [place] 62 degrees [facility] Interpretation EKG Normal sinus rhythm Incomplete right bundle branch block Borderline ECG No previous ECGs available Confirmed by MICHAEL SMITH ([id number]) on 05/24/2015 12:08:24 PM [facility] 05/22/2015 9:45 PM CDT 05/24/2015 12:08 PM CDT Meño Leiva MD ECG ORDERABLES [facility] * CULTURE URINE (03/16/2014 3:00 PM CDT) Culture Urine Less than 10,000 CFU/ML of Normal Fecal Precious [facility] Comment:. Urine specimen (specimen) URINE SPECIMEN OBTAINED BY CLEAN CATCH PROCEDURE / Unknown 03/16/2014 3:00 PM CDT 03/16/2014 9:58 PM CDT Narrative [facility] - 03/18/2014 5:15 PM CDT AndersonSpecimen#[id number] Malachi Loc/Rm/Bed: EXPCARE C// CLN CATCH U Historical Provider LAB - MICROBIOLOG Y ORDERABLES [address] [phone] * GROSS + MICRO EXAM (06/18/1999 11:05 AM CDT) Only the most recent of2 resultswithin the time period is included. Result CASE NUMBER [id number] [facility] Comment: ORDERING PHYSICIAN CLAUDINE MALDONADO SPECIMEN TYPE Gastric / Esophagus-Biopsy CLINICAL HISTORY The patient is a 14-year-old girl with abdominal pain who underwent upper endoscopy. GROSS DESCRIPTION A single specimen is received in a formalin-filled container labeled with the patient's name and gastric and esophagus and consists of six soft, off white to pale gregorio, irregularly shaped tissue fragments varying from 0.1 to 0.2 cm. in greatest dimension. The specimen is wrapped in tissue paper and submitted in its entirety as A1 . (DB/akn) MICROSCOPIC DESCRIPTION 3 H/E Sections show fragments of unremarkable gastric mucosa and unremarkable squamous epithelium. (DB/DED/kb) DIAGNOSIS DIAGNOSIS STOMACH, BIOPSY - NO PATHOLOGIC DIAGNOSIS. ESOPHAGUS, BIOPSY - NO PATHOLOGIC DIAGNOSIS. Car Body Mechanic Rosa M Dyer RESIDENT IN PATHOLOG [place] M.D. PATHOLOGIST Albertina Whipple M.D. ELECTRONICALLY ALBERTINA GALINDO MISCELLANEOUS SAMPLES / Unknown 06/18/1999 11:05 AM CDT 06/18/1999 3:31 PM CDT Historical Provider LAB - PATHOLOGY/C YTOLOGY ORDERABLES [facility] REPORT Care Teams Water Server Relationship Specialty Start Date End Date Jose Juan Gongora MD [address] [facility] [address] [place] [address] PCP - General 01/23/18
[2024-12-08 15:28] LABS: Iron 154 ug/dL (37-170)
[2024-12-08 15:38] LABS: Percent Iron Saturation 53 % (20-50)
== END 2024-12-08 13:32 | disposition home or self-care (01) ==
PROVIDERS: PCP Family Medicine; Visit Provider Family Medicine
DX: K21.9 Gastro-esophageal reflux disease without esophagitis (principal)
CPT/HCPCS: 36415; 74177; 80053; 82728; 83540; 83550; 83690; 85025; Q9967